=== PATIENT | female | born 1995 | race Caucasian/White ===

== ENCOUNTER 2020-11-03 07:43 | Inpatient (IN) | payer OTHER ==
[2020-11-03 09:30] LABS: INR 0.94 (0.83-1.09); PROTHROMBIN TIME (PATIENT) 11.6 SEC (9.7-13.0)
[2020-11-03 09:33] LABS: ACTIVATED PTT 27.7 SECONDS (25.2-36.5)
[2020-11-03 09:34] LABS: BASO % 0.2 % (0-2.0); EOS % 0.6 % (0-4.5); HEMATOCRIT 37.2 % (32.4-45.2); HEMOGLOBIN 12.4 GM/dL (10.7-15.3); LYMPH % 17.2 % (8-40); MCH 30.7 pg (25.7-33.7); MCHC 33.3 g/dl (32.0-36.0); MEAN CELL VOLUME 92.2 fl (80-96); MEAN PLT VOLUME 10.5 fl (7.5-11.1); MONO % 5.9 % (3.8-10.2); NEUT % 76.1 % (42.8-82.8); PLATELET COUNT 192 K/MM3 (134-434); RBC 4.04 M/mm3 (3.60-5.2); RDW 13.3 % (11.6-15.6); WHITE BLOOD COUNT 11.1 K/mm3 (4.0-10.0)
[2020-11-03 09:59] LABS: CALCIUM 9.3 mg/dL (8.5-10.1)
[2020-11-03 10:03] LABS: CREATININE 0.4 mg/dL (0.55-1.3)
[2020-11-03] MEDS: OXYTOCIN 20 UNITS in 0.9% NS 20 UNIT/1,000 ML INFUS.BAG IV SCH (10:20)
[2020-11-03] MEDS ORDERED: WITCH HAZEL 50% (TUCKS) 40 PAD/JAR PAD TP PRN (10:39)
[2020-11-03] MEDS ORDERED: METHYLERGONOVINE MALEATE 0.2 MG/1 ML AMP IM PRN (10:39)
[2020-11-03] MEDS ORDERED: BISACODYL 10 MG SUPP.RECT RC PRN (10:39)
[2020-11-03] MEDS ORDERED: BENZOCAINE 28 GM HEMORRHOIDAL OINTMENT TP PRN (10:39)
[2020-11-03] MEDS ORDERED: BENZOCAINE 20% 57 GM BOTTLE TP PRN (10:39)
[2020-11-03] MEDS ORDERED: ACETAMINOPHEN 325 MG TABLET (FP) ONE (10:58)
[2020-11-03] MEDS ORDERED: IBUPROFEN 600 MG TABLET (FP) PO ONE (10:58)
[2020-11-03] MEDS: ACETAMINOPHEN 325 MG TABLET (FP) PO PRN ×2 (11:00→18:30)
[2020-11-03] MEDS: IBUPROFEN 600 MG TABLET (FP) PO PRN ×2 (11:00→18:30)
[2020-11-03 11:18] LABS: CORD BASE EXCESS -2.6 mmol/L (0-2); CORD HCO3 22.8 mmHg (20-29); CORD PCO2 41.5 mmHg (30-78); CORD pH 7.357 (7.14-7.44)
[2020-11-03 11:22] LABS: HIV INTERPRETATION NEGATIVE (NEGATIVE)
[2020-11-03 11:25] LABS: CORD PCO2 64.6 mmHg (30-78); CORD pH 7.129 (7.14-7.44)
[2020-11-03 11:46] VITALS: BMI 33.6
[2020-11-04] MEDS: ACETAMINOPHEN 325 MG TABLET (FP) PO PRN (08:25)
[2020-11-04] MEDS: IBUPROFEN 600 MG TABLET (FP) PO PRN (08:26)
[2020-11-04 08:43] LABS: BASO % 0.3 % (0-2.0); EOS % 1.3 % (0-4.5); HEMATOCRIT 26.8 % (32.4-45.2); HEMOGLOBIN 9.3 GM/dL (10.7-15.3); LYMPH % 22.1 % (8-40); MCH 31.8 pg (25.7-33.7); MCHC 34.6 g/dl (32.0-36.0); MEAN CELL VOLUME 91.8 fl (80-96); MONO % 6.6 % (3.8-10.2); NEUT % 69.7 % (42.8-82.8); PLATELET COUNT 168 K/MM3 (134-434); RBC 2.92 M/mm3 (3.60-5.2); RDW 13.2 % (11.6-15.6); WHITE BLOOD COUNT 9.4 K/mm3 (4.0-10.0)
[2020-11-04] MEDS: PRENATAL VITAMINS W/ FOLIC ACID TABLET (FP) PO SCH (10:56)
[2020-11-04] MEDS ORDERED: SENNOSIDES/DOCUSATE COMBO (SENNA PLUS) TABLET (UD) PO PRN (22:00)
[2020-11-05 00:16] VITALS: PULSE 92
[2020-11-05] MEDS: OXYTOCIN 20 UNITS in 0.9% NS 20 UNIT/1,000 ML INFUS.BAG IV SCH (00:34)
[2020-11-05] MEDS: IBUPROFEN 600 MG TABLET (FP) PO PRN (09:46)
[2020-11-05] MEDS: ACETAMINOPHEN 325 MG TABLET (FP) PO PRN (09:46)
[2020-11-05] MEDS: PRENATAL VITAMINS W/ FOLIC ACID TABLET (FP) PO SCH (09:46)
[2020-11-05 10:10] VITALS: BP 114/67; TEMP 98.2
== END 2020-11-05 12:20 | disposition home or self-care (01) | DRG 560 ==
LOC: JLDR 07:43 → J3W 13:14
PROVIDERS: ADMIT Obstetrics & Gynecology; ATTEND Obstetrics & Gynecology
PROC: 10E0XZZ Delivery of Products of Conception, External Approach (ICD-10-PCS; principal; 2020-11-03)
PROC: 0KQM0ZZ Repair Perineum Muscle, Open Approach (ICD-10-PCS; 2020-11-03)
DX: O48.0 Post-term pregnancy (principal); O70.1 Second degree perineal laceration during delivery; O99.214 Obesity complicating childbirth; E66.9 Obesity, unspecified; O69.81X0 Labor and delivery complicated by cord around neck, without compression, not applicable or unspecified; Z3A.40 40 weeks gestation of pregnancy; Z37.0 Single live birth
CPT/HCPCS: 36415; 36600; 59409; 80048; 82803; 85025; 85610; 85730; 86780; 86850; 86900; 86901; 87389